=== PATIENT | male | born 2000 | race African-American/Black ===

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

== ENCOUNTER 2021-03-22 10:51 | Emergency (ER) | payer MEDICAID ==
[~2021-03-22] VITALS: Ht 177.8 cm; Wt 62.0 kg
[2021-03-22] MEDS ORDERED: DOXYCYCLINE HYCLATE 100MG CAPSULE PO ONE (11:30)
[2021-03-22] MEDS ORDERED: CEFTRIAXONE SODIUM 500 MG/VIAL IM ONE (11:30)
[2021-03-22] MEDS ORDERED: LIDOCAINE HCL 1% 20ML VIAL (Pyxis) INJ INFIL ONE (11:30)
[2021-03-22 11:52] LABS: CLARITY URINE CLEAR (CLEAR); COLOR URINE YELLOW (YELLOW); KETONES URINE NEGATIVE (NEGATIVE); LEUKOCYTE ESTERASE URINE 2+ (NEGATIVE); NITRITE URINE NEGATIVE (NEGATIVE); OCCULT BLOOD URINE NEGATIVE (NEGATIVE); PROTEIN URINE NEGATIVE (NEGATIVE); SPECIFIC GRAVITY URINE 1.024 (1.005-1.030); UROBILINOGEN URINE 0.2 E.U./dL (0.2-1.0)
[2021-03-22] MEDS ORDERED: DOXY100C5 MT (12:28)
[2021-03-22 12:35] VITALS: BP 128/65
[2021-03-25 14:11] LABS: NEISSERIA GONORRHOEAE NAA Positive (Negative)
== END 2021-03-22 12:36 | disposition home or self-care (01) ==
LOC: ER 10:51
DX: R30.0 Dysuria (principal); Z20.2 Contact with and (suspected) exposure to infections with a predominantly sexual mode of transmission
CPT/HCPCS: 81003; 87086; 87491; 87591; 96372; 99283; J0696; J3490